=== PATIENT | female | born 1990 | race Caucasian/White ===

== ENCOUNTER 2020-04-08 09:12 | Emergency (ER) | payer OTHER ==
[~2020-04-08] VITALS: Ht 180.3 cm; Wt 84.7 kg
--- NOTE | 2020-04-08 09:48 | NUR ---
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
[2020-04-08 10:31] LABS: MICROSCOPIC NOT IND
--- NOTE | 2020-04-08 10:41 | NUR ---
PT TO US AT THIS TIME
[2020-04-08 10:57] VITALS: BP 141/82
--- NOTE | 2020-04-08 10:57 | NUR ---
PT RESTING IN [facility]. PLAYING ON PHONE. VSFiliberto. RAJI.
[2020-04-08 11:02] LABS: BASOPHILS # (AUTO) 0.03 x10^3/uL (0-0.1); BASOPHILS % (AUTO) 1 % (0-1); EOSINOPHILS # (AUTO) 0.03 x10^3/uL (0-0.4); EOSINOPHILS % (AUTO) 1 % (1-7); LYMPHOCYTES % (AUTO) 27 % (22-44); MD NO; MEAN CORPUSCULAR HEMOGLOBIN 30.5 pg (27.0-34.8); MEAN CORPUSCULAR VOLUME 92.5 fL (80-100); MEAN PLATELET VOLUME 8.6 fL (7.4-10.4); MONOCYTES % (AUTO) 6 % (2-9); NEUTROPHILS # (AUTO) 3.16 x10^3/uL (1.8-6.8); NEUTROPHILS % (AUTO) 66 % (42-75); PLATELET COUNT 185 x10^3/uL (130-400); RED BLOOD COUNT 4.13 x10^6/uL (3.82-5.3); RED CELL DISTRIBUTION WIDTH 12.5 % (9.6-15.2)
[2020-04-08 11:14] LABS: ALANINE AMINOTRANSFERASE 19 U/L (12-78); ALBUMIN 3.6 g/dL (3.4-5.0); CALCIUM 8.8 mg/dL (8.5-10.1); CHLORIDE 110 mmol/L (98-107); CREATININE 0.77 mg/dL (0.55-1.02)
[2020-04-08 11:26] LABS: ANION GAP 4 mmol/L (5-15)
[2020-04-08 11:31] LABS: ALKALINE PHOSPHATASE 46 U/L (45-117); BILIRUBIN,TOTAL 0.3 mg/dL (0.2-1.0); TOTAL PROTEIN 6.7 g/dL (6.4-8.2)
--- NOTE | 2020-04-08 11:45 | NUR ---
REPORT FROM MARI NI. PT CARE RESPONSIBILITIES ASSUMED.
--- NOTE | 2020-04-08 14:04 | NUR ---
PT UP TO RESTROOM, NO ASSISTANCE NECESSARY, GAIT STRONG AND INDEPENDENT. SON AT BEDSIDE. CALL LIGHT IN REACH.
== END 2020-04-08 14:28 | disposition home or self-care (01) ==
LOC: ED 10:17
DX: O26.891 Other specified pregnancy related conditions, first trimester (principal); R10.11 Right upper quadrant pain; R10.31 Right lower quadrant pain; Z3A.01 Less than 8 weeks gestation of pregnancy
CPT/HCPCS: 36415; 76705; 76801; 80053; 81003; 84702; 85025; 99285